=== PATIENT | female | born 1970 | race Two or more races ===

== ENCOUNTER 2018-03-12 09:52 | Emergency (ER) | payer MEDICAID, OTHER ==
[~2018-03-12] VITALS: Ht 154.9 cm; Wt 81.6 kg
[~2018-03-12 09:52] MED LIST: CEPH500C
[2018-03-12 10:26] LABS: Urine Bacteria NONE SEEN /hpf (None Seen); Urine Blood 1+ /uL (Negative); Urine Mucus FEW (None Seen); Urine Specific Gravity 1.026 (1.001-1.035); Urine WBC 2 /hpf (0 - 5)
[2018-03-12 10:46] LABS: Basophils # (auto) 0.1 uL; Eosinophils # (auto) 0.2 uL; Lymphocytes # (auto) 1.8 uL; Monocytes # (auto) 0.6 uL
[2018-03-12 10:47] LABS: Basophils % (auto) 0.9 % (0.0-2.0); Eosinophils % (auto) 2.8 % (0.0-7.0); Hematocrit 39.9 % (36.0-46.0); Hemoglobin 12.8 g/dL (12.2-16.2); Lymphocytes % (auto) 21.4 % (10.0-50.0); Mean Corpuscular Hemoglobin 25.7 pg (28.0-32.0); Mean Corpuscular Volume 80.2 fL (80.0-100.0); Monocytes % (auto) 7.4 % (0.0-12.0); Neutrophils # (auto) 5.5 uL; Neutrophils % (auto) 67.5 % (37.0-80.0); Nucleated Red Blood Cells % 0.1 %; Platelet Count (auto) 474 10^3/uL (140-450); Red Blood Cells 4.97 10^6/uL (4.0-5.20); White Blood Cell 8.2 10^3/uL (4.4-10.8)
[2018-03-12 11:02] LABS: Albumin 3.6 g/dL (3.4-5.0); BUN/Creatinine Ratio 9.9; Bilirubin, Total 0.4 mg/dL (0.2-1.0); Calcium 8.8 mg/dL (8.5-10.1); Total Protein 7.8 g/dL (6.4-8.2)
[2018-03-12 12:00] VITALS: BP 122/77
== END 2018-03-12 12:00 | disposition home or self-care (01) ==
LOC: ER 09:52
DX: R10.32 Left lower quadrant pain (principal); K21.9 Gastro-esophageal reflux disease without esophagitis; E11.9 Type 2 diabetes mellitus without complications; R51 Headache; Z90.49 Acquired absence of other specified parts of digestive tract; Z87.891 Personal history of nicotine dependence
CPT/HCPCS: 36415; 80053; 81001; 85025

== ENCOUNTER 2018-05-23 20:07 | Emergency (ER) | payer OTHER ==
[~2018-05-23] VITALS: Ht 180.3 cm; Wt 81.6 kg
[2018-05-23] MEDS ORDERED: ALBUTEROL SULF 2.5 MG/0.5ML(0.5%) NEB SOLN NEB ONE (20:30)
[2018-05-23] MEDS ORDERED: IPRATROPIUM BROM 0.5 MG/2.5ML INH SOL NEB ONE (20:30)
[2018-05-23 22:00] LABS: Urine Bacteria NONE SEEN /hpf (None Seen); Urine Blood Negative /uL (Negative); Urine Mucus FEW (None Seen); Urine Specific Gravity 1.022 (1.001-1.035); Urine WBC 1 /hpf (0 - 5)
[2018-05-23 23:37] LABS: Hemoglobin 13.1 g/dL (12.2-16.2); Mean Corpuscular Volume 76.9 fL (80.0-100.0); Monocytes # (auto) 0.7 uL; Monocytes % (auto) 5.8 % (0.0-12.0); Nucleated Red Blood Cells % 0.1 %; White Blood Cell 12.3 10^3/uL (4.4-10.8)
[2018-05-23 23:38] LABS: Basophils # (auto) 0.1 uL; Eosinophils # (auto) 0.4 uL; Eosinophils % (auto) 3.4 % (0.0-7.0); Hematocrit 39.9 % (36.0-46.0); Lymphocytes # (auto) 2.9 uL; Lymphocytes % (auto) 23.7 % (10.0-50.0); Mean Corpuscular Hemoglobin 25.2 pg (28.0-32.0); Mean Corpuscular Hgb Conc. 32.8 g/dL (32.0-36.0); Neutrophils # (auto) 8.1 uL; Neutrophils % (auto) 66.1 % (37.0-80.0); Platelet Count (auto) 459 10^3/uL (140-450); Red Blood Cells 5.19 10^6/uL (4.0-5.20); Red Cell Distribution Width 15.7 % (11.8-14.3)
[2018-05-23 23:55] LABS: Alanine Aminotransferase 25 U/L (13-56); Albumin 3.3 g/dL (3.4-5.0); Alkaline Phosphatase 85 U/L (45-117); Anion Gap 10 (5-15); Aspartate Aminotransferase 20 U/L (15-37); BUN/Creatinine Ratio 12.3; Bilirubin, Total 0.3 mg/dL (0.2-1.0); Blood Urea Nitrogen 10 mg/dL (7-18); Calcium 8.6 mg/dL (8.5-10.1); Carbon Dioxide 21 mmol/L (21-32); Chloride 109 mmol/L (98-107); GFR African American 97 mL/min; GFR Non-African American 81 mL/min; Glucose 152 mg/dL (74-106); Potassium 4.1 mmol/L (3.5-5.1); Sodium 140 mmol/L (136-145); Total Protein 7.6 g/dL (6.4-8.2)
[2018-05-24 02:30] VITALS: BP 141/88
== END 2018-05-24 03:15 | disposition left against medical advice (07) ==
LOC: ER 20:14
DX: R06.02 Shortness of breath (principal); Z53.21 Procedure and treatment not carried out due to patient leaving prior to being seen by health care provider
CPT/HCPCS: 36415; 71046; 80053; 81001; 81025; 83880; 84484; 85025; 93005; 94640

== ENCOUNTER 2020-02-11 15:36 | Emergency (ER) | payer OTHER ==
[~2020-02-11] VITALS: Ht 154.9 cm; Wt 81.6 kg
[2020-02-11 15:48] VITALS: BP 133/81
[2020-02-11] MEDS ORDERED: IPRATROPIUM BROM 0.5 MG/2.5ML INH SOL NEB ONE (16:45)
[2020-02-11] MEDS ORDERED: ALBUTEROL SULF 2.5 MG/0.5ML(0.5%) NEB SOLN NEB ONE (16:45)
[2020-02-11] MEDS ORDERED: cefTRIAXone SOD 1,000 MG VL IM ONE (17:00)
== END 2020-02-11 17:34 | disposition home or self-care (01) ==
LOC: ER 15:37
DX: J20.9 Acute bronchitis, unspecified (principal); H66.91 Otitis media, unspecified, right ear; E11.9 Type 2 diabetes mellitus without complications; K21.9 Gastro-esophageal reflux disease without esophagitis
CPT/HCPCS: 71046; 94640; 96372; 99283; J0696; J7644

== ENCOUNTER 2020-06-08 09:30 | Emergency (ER) | payer OTHER ==
[~2020-06-08] VITALS: Ht 154.9 cm; Wt 81.6 kg
[2020-06-08] MEDS ORDERED: ACETAMINOPHEN 500 MG TAB PO ONE (10:15)
[2020-06-08 10:47] VITALS: BP 113/85
== END 2020-06-08 14:12 | disposition home or self-care (01) ==
LOC: ER 09:30
DX: J02.0 Streptococcal pharyngitis (principal); F41.9 Anxiety disorder, unspecified; K21.9 Gastro-esophageal reflux disease without esophagitis; E11.9 Type 2 diabetes mellitus without complications; Z90.49 Acquired absence of other specified parts of digestive tract; Z87.891 Personal history of nicotine dependence
CPT/HCPCS: 71045; 87804; 87880

== ENCOUNTER 2020-06-13 20:00 | Emergency (ER) | payer OTHER ==
[~2020-06-13] VITALS: Ht 154.9 cm; Wt 81.6 kg
[2020-06-13] MEDS ORDERED: hydrOXYchloroQUINE SULFATE 200 MG TAB PO ONE (20:30)
[2020-06-13] MEDS ORDERED: ACETAMINOPHEN 325 MG TAB PO ONE (20:39)
[2020-06-13 20:58] VITALS: BP 134/70
== END 2020-06-13 21:02 | disposition home or self-care (01) ==
LOC: ER 20:04
DX: R05 Cough (principal); R09.81 Nasal congestion; R53.1 Weakness; E11.9 Type 2 diabetes mellitus without complications; K21.9 Gastro-esophageal reflux disease without esophagitis; Z20.828 Contact with and (suspected) exposure to other viral communicable diseases; Z90.49 Acquired absence of other specified parts of digestive tract; Z87.891 Personal history of nicotine dependence
CPT/HCPCS: 71045

== ENCOUNTER 2020-06-17 09:51 | Inpatient (IN) | payer OTHER ==
[~2020-06-17] VITALS: Ht 154.9 cm; Wt 88.2 kg
[2020-06-17] MEDS ORDERED: ACETAMINOPHEN 500 MG TAB PO ONE ×2 (10:00→10:01)
[2020-06-17] MEDS ORDERED: SODIUM CHLORIDE 0.9% 1,000 ML IV ONE (11:07)
[2020-06-17] MEDS ORDERED: ASCORBIC ACID 500 MG TAB PO ONE (11:15)
[2020-06-17] MEDS ORDERED: cefTRIAXone 1GM/50ML D5W 50 ML IV ONE (11:15)
[2020-06-17] MEDS ORDERED: DexAMETHasone SOD PHOS 4 MG/1ML SDV INJ IV ONE (11:15)
[2020-06-17] MEDS ORDERED: ZINC SULFATE 220mg CAP or TAB PO ONE (11:15)
[2020-06-17] MEDS ORDERED: AZITHROMYCIN 500MG/ 250ML 250 ML IV ONE (11:15)
[2020-06-17 12:39] LABS: Basophils # (auto) 0 10 ^3/uL (0-0.2); Eosinophils # (auto) 0 10 ^3/uL (0-0.8); Eosinophils % (auto) 0.1 % (0.0-7.0); Hematocrit 40.3 % (36.0-46.0); Mean Corpuscular Hemoglobin 23.5 pg (28.0-32.0)
[2020-06-17 12:40] LABS: Basophils % (auto) 0.3 % (0.0-2.0); Hemoglobin 12.7 g/dL (12.2-16.2); Lymphocytes # (auto) 1.4 10 ^3/uL (0.4-5.4); Lymphocytes % (auto) 12.8 % (10.0-50.0); Mean Corpuscular Hgb Conc. 31.5 g/dL (32.0-36.0); Mean Corpuscular Volume 74.7 fL (80.0-100.0); Monocytes # (auto) 1.2 10 ^3/uL (0-1.3); Monocytes % (auto) 10.9 % (0.0-12.0); Neutrophils # (auto) 8.3 10 ^3/uL (1.6-8.6); Neutrophils % (auto) 75.9 % (37.0-80.0); Platelet Count (auto) 361 10^3/uL (140-450); Red Cell Distribution Width 17.8 % (11.8-14.3)
[2020-06-17 12:54] LABS: INR 1.02 (0.9-1.15); Partial Thromboplastin Time 25.7 sec (23.64-32.05)
[2020-06-17 12:57] LABS: BUN/Creatinine Ratio 12.1; Calcium 8.5 mg/dL (8.5-10.1); Magnesium 2.3 mg/dL (1.6-2.6); Potassium 3.7 mmol/L (3.5-5.1)
[2020-06-17 13:00] LABS: Bilirubin, Total 0.4 mg/dL (0.2-1.0); Total Protein 7.6 g/dL (6.4-8.2)
[2020-06-17] MEDS ORDERED: MORPHINE SULF INJ 2 MG/ML SYRINGE 1ML IV PRN (13:15)
[2020-06-17] MEDS ORDERED: NITROGLYCERIN 0.4 MG SL TAB SL PRN (13:15)
[2020-06-17] MEDS ORDERED: SODIUM CHLORIDE 0.9% 1,000 ML IV SCH (13:53)
[2020-06-17] MEDS: ALBUTEROL SULF HFA 90MCG INH 200DOSE IN SCH ×2 (14:00→21:00)
[2020-06-17] MEDS ORDERED: TEMAZEPAM 15 MG CAP PO PRN (14:00)
[2020-06-17] MEDS ORDERED: DEXTROSE (50%) 50ML SYRG IV PRN (14:00)
[2020-06-17] MEDS ORDERED: ACETAMINOPHEN 500 MG TAB PO PRN (14:00)
[2020-06-17] MEDS: CLINDAMYCIN 600MG IV 50 ML IV SCH ×2 (14:00→22:20)
[2020-06-17] MEDS: ACCU-CHEK COMFORT CURVE STRIP VI SCH ×2 (17:00→22:21)
[2020-06-17] MEDS: InsuLIN REG 1unit/0.01ml Soln (100units/ml) SC SCH ×2 (17:00→22:22)
[2020-06-17 18:37] VITALS: BP 134/79
[2020-06-17] MEDS: BUDESONIDE (INHALATION) 180 MCG IH IN SCH (21:00)
--- NOTE | 2020-06-17 21:00 | NUR ---
tele admit from ed pt is covid positive, arrived via wheelchair awake and alert. pt on 2L nc no distress noted or expressed. pt oriented to this nurse, bed controls, use of call light and restroom. pt updated on plan of care. pt stated she had been feeling symptoms for past "week, plus". pt also reports multiple members of her household have tested positive for covid. pt bed locked, low and 2x rails up. call light in reach, this nurse encouraged pt to call as needed. this nurse to round q1hr and prn. pt is tele 2 showing nsr 72bpm.
[2020-06-17 22:00] VITALS: BP 116/70
[2020-06-17] MEDS: GABAPENTIN 300 MG CAP PO SCH (22:20)
[2020-06-17] MEDS: ENOXAPARIN SOD 40 MG/0.4 ML SYRINGE SC SCH (22:21)
[2020-06-17] MEDS: QUEtiapine FUMARATE 25 MG TAB PO SCH (22:21)
[2020-06-17 22:27] LABS: Urine Bacteria NONE SEEN /hpf (None Seen); Urine Blood Negative /uL (Negative); Urine Mucus FEW (None Seen); Urine Specific Gravity 1.023 (1.001-1.035); Urine WBC 4 /hpf (0 - 5)
[2020-06-17] MEDS: traMADol HCL 50 MG TAB PO PRN (22:53)
--- NOTE | 2020-06-17 23:35 | NUR ---
Respiratory note: PT SEEN AND ASSESSED, NO DISTRESS NOTED AT THIS TIME. MEDICATION NON ADMIN AT THIS TIME. PHARMACY NOT HERE TO RETRIEVE MEDICATION. WILL NOTIFY DAY SHIFT RT.
[2020-06-18] MEDS: PROMETHAZINE HCL 25 MG/ML 1ML IV PRN ×4 (03:38→22:28)
[2020-06-18 05:00] VITALS: BP 99/62
[2020-06-18 05:40] LABS: Basophils # (auto) 0 10 ^3/uL (0-0.2); Eosinophils # (auto) 0 10 ^3/uL (0-0.8); Monocytes # (auto) 0.8 10 ^3/uL (0-1.3)
[2020-06-18 05:42] LABS: Basophils % (auto) 0.4 % (0.0-2.0); Eosinophils % (auto) 0.2 % (0.0-7.0); Hemoglobin 11.7 g/dL (12.2-16.2); Lymphocytes # (auto) 1.1 10 ^3/uL (0.4-5.4); Lymphocytes % (auto) 16.4 % (10.0-50.0); Mean Corpuscular Hemoglobin 23.5 pg (28.0-32.0); Mean Corpuscular Hgb Conc. 31.8 g/dL (32.0-36.0); Mean Corpuscular Volume 74.1 fL (80.0-100.0); Monocytes % (auto) 11.4 % (0.0-12.0); Neutrophils % (auto) 71.6 % (37.0-80.0); Platelet Count (auto) 365 10^3/uL (140-450); Red Blood Cells 4.99 10^6/uL (4.0-5.20); Red Cell Distribution Width 17.8 % (11.8-14.3)
[2020-06-18 05:53] LABS: Potassium 3.7 mmol/L (3.5-5.1)
[2020-06-18 06:00] LABS: Albumin 2.9 g/dL (3.4-5.0); BUN/Creatinine Ratio 16.9; Bilirubin, Total 0.4 mg/dL (0.2-1.0); Calcium 8.1 mg/dL (8.5-10.1)
[2020-06-18] MEDS: ALBUTEROL SULF HFA 90MCG INH 200DOSE IN SCH ×3 (06:43→23:45)
[2020-06-18] MEDS: BUDESONIDE (INHALATION) 180 MCG IH IN SCH ×2 (06:43→22:00)
--- NOTE | 2020-06-18 06:43 | NUR ---
Respiratory note: MDI NOT AVAILABLE, WILL ORDER FROM PHARMACY. PT IN NO RESPIRATORY DISTRESS.
[2020-06-18] MEDS: GABAPENTIN 300 MG CAP PO SCH ×3 (06:48→22:27)
[2020-06-18] MEDS: ACCU-CHEK COMFORT CURVE STRIP VI SCH ×4 (06:48→22:28)
[2020-06-18] MEDS: InsuLIN REG 1unit/0.01ml Soln (100units/ml) SC SCH ×4 (06:49→22:26)
[2020-06-18] MEDS: CLINDAMYCIN 600MG IV 50 ML IV SCH ×3 (06:49→22:27)
[2020-06-18 08:44] VITALS: BP 106/64
[2020-06-18] MEDS ORDERED: DexAMETHasone SOD PHOS 4 MG/1ML SDV INJ IV SCH (10:00)
[2020-06-18] MEDS: DexAMETHasone SOD PHOS 10MG/1ML VIAL INJ IV SCH (10:21)
[2020-06-18] MEDS: ASCORBIC ACID 1,000 MG TAB PO SCH (10:22)
[2020-06-18] MEDS: ZINC SULFATE 220mg CAP or TAB PO SCH (10:22)
[2020-06-18] MEDS: CHOLECALCIFEROL (VITD3) 1,000UNIT=25mCg TAB PO SCH (10:22)
[2020-06-18] MEDS: levoFLOXacin 500MG 100 ML IV SCH (10:22)
[2020-06-18] MEDS: CITALOPRAM HYDROBR 20 MG TAB PO SCH (10:22)
[2020-06-18] MEDS: ENOXAPARIN SOD 40 MG/0.4 ML SYRINGE SC SCH ×2 (10:23→22:28)
[2020-06-18] MEDS: traMADol HCL 50 MG TAB PO PRN ×2 (10:35→22:29)
[2020-06-18 12:21] VITALS: BP 109/71
[2020-06-18 17:19] VITALS: BP 103/64
[2020-06-18] MEDS: clonazePAM 0.5 MG TAB PO PRN (17:56)
--- NOTE | 2020-06-18 19:20 | NUR ---
Opening note pt A&Ox4. respirations even and nonlabored on 2Lnc. pt ambulates to bathroom without assistance, however has c/o SOB w/exertion. pt is a nonproductive cough. POC discussed with pt, verbalized understanding. bed in low locked position, call light within reach.
[2020-06-18 22:00] VITALS: BP 114/71
[2020-06-18] MEDS: QUEtiapine FUMARATE 25 MG TAB PO SCH (22:27)
[2020-06-19] MEDS: MORPHINE SULF INJ 2 MG/ML SYRINGE 1ML IV PRN ×4 (02:44→20:00)
[2020-06-19 05:00] VITALS: BP 106/71
[2020-06-19] MEDS: ACCU-CHEK COMFORT CURVE STRIP VI SCH ×4 (06:32→22:30)
[2020-06-19] MEDS: InsuLIN REG 1unit/0.01ml Soln (100units/ml) SC SCH ×4 (06:35→22:31)
[2020-06-19] MEDS: GABAPENTIN 300 MG CAP PO SCH ×3 (06:58→22:29)
[2020-06-19] MEDS: CLINDAMYCIN 600MG IV 50 ML IV SCH (06:58)
[2020-06-19] MEDS: BUDESONIDE (INHALATION) 180 MCG IH IN SCH ×2 (07:05→22:10)
--- NOTE | 2020-06-19 07:28 | NUR ---
closing note pt resting in semi fowlers with HOB at 30 degrees. respirations even and nonlabored on 2Lnc. bed in low locked position, call light within reach.
--- NOTE | 2020-06-19 07:30 | NUR ---
Opening Shift Note Assumed care of patient, awake and alert. No S/S of distress/SOB or pain. Instructed on POC and to call for assist PRN, will continue to monitor for changes Q1hr and PRN. Fall precautions in place per safety protocol.
[2020-06-19] MEDS: ALBUTEROL SULF HFA 90MCG INH 200DOSE IN SCH ×3 (08:33→22:10)
[2020-06-19] MEDS: PROMETHAZINE HCL 25 MG/ML 1ML IV PRN ×3 (08:40→19:59)
--- NOTE | 2020-06-19 08:50 | NUR ---
PAIN Patient requesting pain medication for pain of 10/10. Administered available morphine at this time, will cont to monitor patient.
[2020-06-19 09:00] VITALS: BP 108/75
[2020-06-19] MEDS: levoFLOXacin 500MG 100 ML IV SCH (10:16)
[2020-06-19] MEDS: DexAMETHasone SOD PHOS 10MG/1ML VIAL INJ IV SCH (10:16)
[2020-06-19] MEDS: CITALOPRAM HYDROBR 20 MG TAB PO SCH (10:16)
[2020-06-19] MEDS: ZINC SULFATE 220mg CAP or TAB PO SCH (10:16)
[2020-06-19] MEDS: clonazePAM 0.5 MG TAB PO PRN (10:17)
[2020-06-19] MEDS: ASCORBIC ACID 1,000 MG TAB PO SCH (10:17)
[2020-06-19] MEDS: CHOLECALCIFEROL (VITD3) 1,000UNIT=25mCg TAB PO SCH (10:58)
[2020-06-19] MEDS ORDERED: DOXYCYCLINE 100 MG TAB/CAP PO ONE (11:15)
[2020-06-19] MEDS ORDERED: POTASSIUM CHL 10 Meq TABLET PO ONE (11:15)
[2020-06-19] MEDS ORDERED: FUROSEMIDE 40 MG TAB PO ONE (11:15)
[2020-06-19] MEDS: ENOXAPARIN SOD 80 MG/0.8ML SYRINGE SC SCH ×2 (11:34→22:30)
--- NOTE | 2020-06-19 11:57 | NUR ---
I called [facility] and spoke with Kimberlee [phone]-she stated we can use [facility] for home oxygen. I faxed home oxygen order to [facility]-requesting that they send authorization to [facility].
[2020-06-19 13:00] VITALS: BP 121/74
[2020-06-19] MEDS ORDERED: guaiFENesin-CODEINE Liq 5 ML UD PO ONE (13:00)
--- NOTE | 2020-06-19 13:00 | NUR ---
Hospitalist MD Dominguez at bedside, aware of patient status. New orders for social insurance analyst to arrange for home O2 received. Per MD Dominguez, she will input D/C orders in today however, patient is to be discharged tomorrow in the AM. Will carry out new orders and cont to monitor patient.
--- NOTE | 2020-06-19 15:36 | NUR ---
I called [facility] [phone] and spoke with Teresa, she said they did receive the order and are working on it-they will send authorization to [facility] today.
--- NOTE | 2020-06-19 15:49 | NUR ---
Assessment Patient is a 49- year-old female who is alert and oriented. Prior to admission patient lived home with family and function independently. Per patient she can care for her own ADLs. Per patient she does not have any medical equipment now. Per patient she will return to her prior living arrangements post discharge and family will transport her home. Patient PCP Dr. Reynolds. Advise patient there is a social service consult for home oxygen. Informed patient clinical information will be faxed to [facility]. Advised patient to follow up with her primary doctor. Informed patient she has the right to participate in all discharge planning. Patient verbalized understanding and agreed to discharge plan. Faxed clinical information to [facility] requesting to deliver portable oxygen to [facility]. STEPHANIE Triplett will obtain authorization from [facility]. Placed call to [facility], spoke to Daina . Per Daina order has been received but authorization is pending. Informed STEPHANIE Triplett who will be following up with [facility]. Addendum: 06/19/20 at 1551 by THEODORE SOSA Amended: Links added.
--- NOTE | 2020-06-19 16:40 | NUR ---
O2 ON RA Patient placed on RA to assess O2, patient 02 on RA was 91%. Will cont to monitor.
[2020-06-19 17:00] VITALS: BP 99/68
[2020-06-19] MEDS ORDERED: guaiFENesin-CODEINE Liq 5 ML UD PO PRN (18:00)
--- NOTE | 2020-06-19 19:25 | NUR ---
opening note pt A&Ox4. respirations even and nonlabored on 2Lnc. will attempt to titrate O2 down to room air. POC discussed, pt verbalized understanding. bed in low locked position, call light within reach.
[2020-06-19 21:54] VITALS: BP 126/67
[2020-06-19] MEDS ORDERED: DexAMETHasone 4 MG TAB PO SCH (22:00)
[2020-06-19] MEDS: DOXYCYCLINE 100 MG TAB/CAP PO SCH (22:29)
[2020-06-19] MEDS: QUEtiapine FUMARATE 25 MG TAB PO SCH (22:29)
[2020-06-20] MEDS: MORPHINE SULF INJ 2 MG/ML SYRINGE 1ML IV PRN (00:58)
[2020-06-20] MEDS: PROMETHAZINE HCL 25 MG/ML 1ML IV PRN ×4 (00:58→22:43)
--- NOTE | 2020-06-20 02:35 | NUR ---
rounds Pt resting comfortably in semi fowlers position with HOB at 30 degrees. respirations are even and nonlabored on room air. respirations are 16/min. O2 saturation is 92%. will continue to monitor.
[2020-06-20 04:54] VITALS: BP 114/69
[2020-06-20] MEDS: ACCU-CHEK COMFORT CURVE STRIP VI SCH ×4 (06:55→22:45)
[2020-06-20] MEDS: GABAPENTIN 300 MG CAP PO SCH ×3 (06:55→22:43)
[2020-06-20] MEDS: InsuLIN REG 1unit/0.01ml Soln (100units/ml) SC SCH ×4 (06:56→22:46)
--- NOTE | 2020-06-20 07:21 | NUR ---
closing note pt resting in semi fowlers with HOB elevated at 30 degrees. respirations even and nonlabored on room air. bed in low locked position, call light within reach.
--- NOTE | 2020-06-20 08:35 | NUR ---
OPENING SHIFT NOTE Assumed care of patient. PT is awake and alert. No S/S of distress/SOB or pain. Instructed on POC and to call for assist PRN. Fall precautions in place per safety protocol. Will continue to monitor for changes Q1hr and PRN.
[2020-06-20 09:00] VITALS: BP 113/73
[2020-06-20] MEDS: ALBUTEROL SULF HFA 90MCG INH 200DOSE IN SCH ×2 (09:55→16:10)
[2020-06-20] MEDS: BUDESONIDE (INHALATION) 180 MCG IH IN SCH (09:56)
[2020-06-20] MEDS ORDERED: LACTULOSE 20Gm/30ML SOLN PO PRN (10:15)
[2020-06-20] MEDS: FUROSEMIDE 40 MG/4 ML VIAL IV SCH (10:45)
[2020-06-20] MEDS: ENOXAPARIN SOD 80 MG/0.8ML SYRINGE SC SCH ×2 (10:45→22:44)
[2020-06-20] MEDS: DexAMETHasone SOD PHOS 10MG/1ML VIAL INJ IV SCH (10:45)
[2020-06-20] MEDS: CITALOPRAM HYDROBR 20 MG TAB PO SCH (10:46)
[2020-06-20] MEDS: ASCORBIC ACID 1,000 MG TAB PO SCH (10:46)
[2020-06-20] MEDS: DOXYCYCLINE 100 MG TAB/CAP PO SCH (10:46)
[2020-06-20] MEDS: ZINC SULFATE 220mg CAP or TAB PO SCH (10:46)
[2020-06-20] MEDS: traMADol HCL 50 MG TAB PO PRN (10:47)
[2020-06-20] MEDS: CHOLECALCIFEROL (VITD3) 1,000UNIT=25mCg TAB PO SCH (10:48)
[2020-06-20 11:02] LABS: Basophils # (auto) 0 10 ^3/uL (0-0.2); Basophils % (auto) 0.1 % (0.0-2.0); Eosinophils # (auto) 0 10 ^3/uL (0-0.8); Eosinophils % (auto) 0.1 % (0.0-7.0); Hematocrit 38.8 % (36.0-46.0); Hemoglobin 12.3 g/dL (12.2-16.2); Lymphocytes # (auto) 1.1 10 ^3/uL (0.4-5.4); Monocytes # (auto) 0.7 10 ^3/uL (0-1.3); Monocytes % (auto) 7.7 % (0.0-12.0); Neutrophils # (auto) 6.8 10 ^3/uL (1.6-8.6); Nucleated Red Blood Cells % 0.1 %
[2020-06-20 11:03] LABS: Lymphocytes % (auto) 12.3 % (10.0-50.0); Mean Corpuscular Hemoglobin 23.5 pg (28.0-32.0); Mean Corpuscular Hgb Conc. 31.6 g/dL (32.0-36.0); Mean Corpuscular Volume 74.5 fL (80.0-100.0); Neutrophils % (auto) 79.8 % (37.0-80.0); Platelet Count (auto) 413 10^3/uL (140-450); Red Blood Cells 5.21 10^6/uL (4.0-5.20); Red Cell Distribution Width 17.7 % (11.8-14.3); White Blood Cell 8.6 10^3/uL (4.4-10.8)
[2020-06-20 11:21] LABS: Calcium 9.2 mg/dL (8.5-10.1); Potassium 3.8 mmol/L (3.5-5.1)
[2020-06-20 11:23] LABS: BUN/Creatinine Ratio 12.9; CRP High Sensitivity 0.33 mg/dL (< 0.3)
[2020-06-20] MEDS ORDERED: PANTOPRAZOLE 40 MG TAB PO ONE (11:30)
[2020-06-20] MEDS: clonazePAM 0.5 MG TAB PO PRN (12:03)
--- NOTE | 2020-06-20 12:46 | NUR ---
Nutrition Assessment Notes please see attached link for complete assessment Est Energy needs ABW 68 [id number] (20-23 kcal/kgABW), Est Protein needs: 68-74gms/day (1.0-1.1 gm/kgABW). Will continue to monitor and reassess prn. Addendum: 06/20/20 at [address] Amended: Links added.
[2020-06-20 13:00] VITALS: BP 123/85
--- NOTE | 2020-06-20 13:16 | NUR ---
I called Teresa at [facility] [phone] and left message asking for an update on status of home oxygen order-needing authorization.
--- NOTE | 2020-06-20 13:37 | NUR ---
I spoke with Crystal at [facility] [phone] regarding home oxygen order. At first Crystal told me they would not authorize home oxygen unless room air saturation is less than 89%, she then spoke with her esthetician and manager [facility] who said they will authorize the home oxygen for 30 days and then re-assess. I relayed this information to Dr. Dominguez. Addendum: 06/20/20 at 1343 by Ioana George RN Per Crystal they will send the authorization to [facility].
[2020-06-20 17:00] VITALS: BP 127/70
[2020-06-20] MEDS: HYDROcodone-ACET 5/325MG TAB PO PRN ×2 (17:46→23:55)
--- NOTE | 2020-06-20 19:15 | NUR ---
opening note pt A&Ox4. respirations even and nonlabored on room air. pt reports sweating. pt reports constipation. POC discussed, pt verbalized understanding. bed in low locked position. call light within reach.
[2020-06-20 19:51] VITALS: BP 127/70
[2020-06-20] MEDS ORDERED: BISACODYL 5 MG EC TAB PO ONE (20:00)
--- NOTE | 2020-06-20 20:30 | NUR ---
Portable fan provided Nurse aid Xochi provide patient with fan due to complaints of sweating. pt is relieved. will continue to monitor.
[2020-06-20 22:00] VITALS: BP 112/69
[2020-06-20] MEDS: QUEtiapine FUMARATE 25 MG TAB PO SCH (22:44)
[2020-06-21] MEDS: ALBUTEROL SULF HFA 90MCG INH 200DOSE IN SCH ×3 (00:10→14:54)
[2020-06-21] MEDS: BUDESONIDE (INHALATION) 180 MCG IH IN SCH ×2 (00:11→08:59)
[2020-06-21] MEDS: PROMETHAZINE HCL 25 MG/ML 1ML IV PRN ×3 (02:45→13:06)
[2020-06-21] MEDS: MORPHINE SULF INJ 2 MG/ML SYRINGE 1ML IV PRN ×2 (03:52→13:06)
[2020-06-21 05:00] VITALS: BP 118/76
[2020-06-21] MEDS: ACCU-CHEK COMFORT CURVE STRIP VI SCH ×3 (06:50→18:05)
[2020-06-21] MEDS: GABAPENTIN 300 MG CAP PO SCH ×2 (06:50→15:57)
[2020-06-21] MEDS: InsuLIN REG 1unit/0.01ml Soln (100units/ml) SC SCH ×3 (06:51→17:00)
[2020-06-21 06:58] LABS: Basophils # (auto) 0 10 ^3/uL (0-0.2); Eosinophils # (auto) 0 10 ^3/uL (0-0.8); Hematocrit 38.5 % (36.0-46.0); Hemoglobin 12.3 g/dL (12.2-16.2); White Blood Cell 12.2 10^3/uL (4.4-10.8)
[2020-06-21 07:00] LABS: Basophils % (auto) 0.3 % (0.0-2.0); Eosinophils % (auto) 0.1 % (0.0-7.0); Lymphocytes # (auto) 1.6 10 ^3/uL (0.4-5.4); Lymphocytes % (auto) 12.8 % (10.0-50.0); Mean Corpuscular Hemoglobin 23.7 pg (28.0-32.0); Mean Corpuscular Hgb Conc. 31.9 g/dL (32.0-36.0); Mean Corpuscular Volume 74.3 fL (80.0-100.0); Neutrophils # (auto) 9.6 10 ^3/uL (1.6-8.6); Neutrophils % (auto) 78.8 % (37.0-80.0); Nucleated Red Blood Cells % 0.1 %; Platelet Count (auto) 409 10^3/uL (140-450); Red Blood Cells 5.17 10^6/uL (4.0-5.20); Red Cell Distribution Width 17.7 % (11.8-14.3)
[2020-06-21 07:26] LABS: Calcium 9.1 mg/dL (8.5-10.1); Potassium 3.8 mmol/L (3.5-5.1)
[2020-06-21 07:29] LABS: BUN/Creatinine Ratio 17.7
[2020-06-21 07:32] LABS: Bilirubin, Total 0.4 mg/dL (0.2-1.0); Total Protein 7.5 g/dL (6.4-8.2)
--- NOTE | 2020-06-21 07:35 | NUR ---
Opening Shift Note Assumed care of patient, awake and alert. No S/S of distress/SOB, reports body pain. Instructed on POC and to call for assist PRN, will continue to monitor for changes Q1hr and PRN.
--- NOTE | 2020-06-21 07:47 | NUR ---
closing note Pt resting in semi fowlers position with HOB at 30 degrees. respirations even and nonlabored on room air. bed in low locked position with call light within reach. endorsed care to day shift RN.
[2020-06-21] MEDS: HYDROcodone-ACET 5/325MG TAB PO PRN (08:55)
[2020-06-21 09:00] VITALS: BP 124/79
[2020-06-21] MEDS ORDERED: PANTOPRAZOLE 40 MG TAB PO SCH (10:00)
[2020-06-21] MEDS: ENOXAPARIN SOD 80 MG/0.8ML SYRINGE SC SCH (10:00)
[2020-06-21] MEDS: FUROSEMIDE 40 MG/4 ML VIAL IV SCH (10:38)
[2020-06-21] MEDS: DexAMETHasone SOD PHOS 10MG/1ML VIAL INJ IV SCH (10:38)
[2020-06-21] MEDS: ZINC SULFATE 220mg CAP or TAB PO SCH (10:38)
[2020-06-21] MEDS: CITALOPRAM HYDROBR 20 MG TAB PO SCH (10:39)
[2020-06-21] MEDS: ASCORBIC ACID 1,000 MG TAB PO SCH (10:39)
[2020-06-21] MEDS: CHOLECALCIFEROL (VITD3) 1,000UNIT=25mCg TAB PO SCH (10:40)
[2020-06-21] MEDS: clonazePAM 0.5 MG TAB PO PRN (10:41)
[2020-06-21] MEDS ORDERED: METH4PAK PO (11:42)
[2020-06-21] MEDS ORDERED: POTA1TAB61 PO (11:42)
[2020-06-21] MEDS ORDERED: ASPI81CH43 PO (11:42)
[2020-06-21] MEDS ORDERED: CHOL1000 PO (11:42)
[2020-06-21] MEDS ORDERED: FURO20TA3 PO (11:42)
[2020-06-21] MEDS ORDERED: LEVO750T64 PO (11:42)
[2020-06-21] MEDS ORDERED: ALBUAER3 IN (11:42)
[2020-06-21] MEDS ORDERED: PANT40T PO (11:42)
[2020-06-21] MEDS ORDERED: ZINC100T5 PO (11:42)
[2020-06-21] MEDS ORDERED: BISA1TAB6 PO (11:44)
[2020-06-21] MEDS ORDERED: DEXT1SYP9 PO (11:44)
[2020-06-21 13:00] VITALS: BP 106/73
[2020-06-21 13:47] VITALS: BP 124/79
--- NOTE | 2020-06-21 15:25 | NUR ---
I faxed hard copy authorization (from [facility]) to [facility] (fax [phone]) for home oxygen.
--- NOTE | 2020-06-21 16:26 | NUR ---
D/C automobile mechanic radiator Velvet advised me patient never received oxygen yesterday. Placed follow up called to León with [facility] advising me patient portable will be deliver to front lobby between 16:30-18:30. Informed VALDEMAR Warren.
--- NOTE | 2020-06-21 19:55 | NUR ---
Opening Shift Note Assumed care of patient, awake and alert, oriented x 4, follows direction. Patient on room air walking in room with no s/s of respiratory distress, or SOB. Instructed on POC for discharge, patient verbalized understanding. Oxygen was delivered to bed side, instructed patient on how to use oxygen, patient verbalized understanding.
--- NOTE | 2020-06-21 20:05 | NUR ---
Discharge instructions given as ordered. Encourage to follow up with PMD as instructed. All questions and concerns addressed. Patient verbalized understanding. Medication reconciliation form completed and copy given to patient. IV removed with catheter intact, pressure dressing applied. Telemetry unit returned to ICU. Patient taken to vehicle via wheelchair with all personal belongings, accompanied by staff and family member. No distress noted at time of departure. Addendum: 06/21/20 at 2033 by Elena Bergeron RN RN patient was on portable oxygen 2l via [place]
[2020-06-22] MEDS ORDERED: levoFLOXacin 250 MG TAB PO SCH (10:00)
== END 2020-06-21 20:05 | disposition home or self-care (01) | DRG 720 ==
LOC: ER 09:51 → TELE 09:52 → TELE-EAST 20:25
PROVIDERS: ADMIT Internal Medicine; ATTEND Internal Medicine
DX: A41.89 Other specified sepsis (principal); U07.1 COVID-19; J12.89 Other viral pneumonia; E44.0 Moderate protein-calorie malnutrition; K21.0 Gastro-esophageal reflux disease with esophagitis; K44.9 Diaphragmatic hernia without obstruction or gangrene; N39.0 Urinary tract infection, site not specified; E11.40 Type 2 diabetes mellitus with diabetic neuropathy, unspecified; E66.01 Morbid (severe) obesity due to excess calories; E78.5 Hyperlipidemia, unspecified; J96.01 Acute respiratory failure with hypoxia; K21.9 Gastro-esophageal reflux disease without esophagitis; K59.00 Constipation, unspecified; Z79.899 Other long term (current) drug therapy; Z68.36 Body mass index [BMI] 36.0-36.9, adult
CPT/HCPCS: 36415; 71045; 80048; 80053; 81001; 82728; 82962; 83036; 83615; 83735; 84443; 85025; 85610; 85730; 86141; 93005; 94640; 96365; 96368; 96375; G0378; J0696; J1100; J1815; J1956; J3490

== ENCOUNTER 2020-10-25 18:57 | Emergency (ER) | payer OTHER ==
[~2020-10-25] VITALS: Ht 154.9 cm; Wt 86.2 kg
[~2020-10-25 18:57] MED LIST changes: +ALBUAER3 IN; +ASPI81CH43 PO; +BISA1TAB6 PO; +CHOL1000 PO; +DEXT1SYP9 PO; +FURO20TA3 PO; +LEVO750T64 PO; +METH4PAK PO; +PANT40T PO; +POTA1TAB61 PO; +ZINC100T5 PO
[2020-10-25 20:21] LABS: Urine Bacteria FEW /hpf (None Seen); Urine Blood Negative /uL (Negative); Urine Specific Gravity 1.041 (1.001-1.035); Urine WBC 2 /hpf (0 - 5)
[2020-10-25 20:22] LABS: Basophils # (auto) 0.1 10 ^3/uL (0-0.2); Basophils % (auto) 1.5 % (0.0-2.0); Eosinophils # (auto) 0.3 10 ^3/uL (0-0.8); Eosinophils % (auto) 3.6 % (0.0-7.0); Hemoglobin 12.1 g/dL (12.2-16.2); Lymphocytes # (auto) 2.4 10 ^3/uL (0.4-5.4); Lymphocytes % (auto) 28.9 % (10.0-50.0); Mean Corpuscular Hemoglobin 23.2 pg (28.0-32.0); Mean Corpuscular Hgb Conc. 31.8 g/dL (32.0-36.0); Mean Corpuscular Volume 72.9 fL (80.0-100.0); Monocytes # (auto) 0.6 10 ^3/uL (0-1.3); Monocytes % (auto) 7.8 % (0.0-12.0); Neutrophils # (auto) 4.8 10 ^3/uL (1.6-8.6); Neutrophils % (auto) 58.2 % (37.0-80.0); Nucleated Red Blood Cells % 0.2 %; Platelet Count (auto) 413 10^3/uL (140-450); Red Blood Cells 5.21 10^6/uL (4.0-5.20); Red Cell Distribution Width 16.2 % (11.8-14.3); White Blood Cell 8.3 10^3/uL (4.4-10.8)
[2020-10-25 20:32] LABS: Albumin 3.4 g/dL (3.4-5.0); Anion Gap 6 (5-15); BUN/Creatinine Ratio 6.6; Blood Urea Nitrogen 7 mg/dL (7-18); Carbon Dioxide 26 mmol/L (21-32); Chloride 102 mmol/L (98-107); GFR African American 71 mL/min; GFR Non-African American 59 mL/min; Glucose 277 mg/dL (74-106); Magnesium 1.9 mg/dL (1.6-2.6); Sodium 134 mmol/L (136-145)
[2020-10-25 20:36] LABS: INR 0.94 (0.9-1.15); Partial Thromboplastin Time 24.1 sec (23.0-31.2)
[2020-10-25 20:40] LABS: Alkaline Phosphatase 97 U/L (45-117); Bilirubin, Total 0.4 mg/dL (0.2-1.0); Total Protein 7.9 g/dL (6.4-8.2)
[2020-10-25 21:00] LABS: Alanine Aminotransferase 50 U/L (13-56); Aspartate Aminotransferase 44 U/L (15-37)
[2020-10-26] MEDS ORDERED: LORazepam 0.5 MG TAB PO ONE (01:45)
[2020-10-26 02:00] VITALS: BP 156/88
== END 2020-10-26 03:54 | disposition home or self-care (01) ==
LOC: ER 18:57
DX: R07.89 Other chest pain (principal); E11.9 Type 2 diabetes mellitus without complications; K40.90 Unilateral inguinal hernia, without obstruction or gangrene, not specified as recurrent; K21.9 Gastro-esophageal reflux disease without esophagitis; Z90.49 Acquired absence of other specified parts of digestive tract; Z79.82 Long term (current) use of aspirin; Z79.899 Other long term (current) drug therapy
CPT/HCPCS: 36415; 71250; 74176; 80053; 81001; 82962; 83735; 83880; 84443; 84484; 85025; 85610; 85730; 93005

== ENCOUNTER 2020-12-07 17:10 | Emergency (ER) | payer OTHER ==
[~2020-12-07] VITALS: Ht 154.9 cm; Wt 83.9 kg
[2020-12-07 20:26] VITALS: BP 163/86
[2020-12-07] MEDS ORDERED: KETOROLAC TROMETH 60MG/2ML VIAL IM ONE (20:45)
== END 2020-12-07 21:59 | disposition home or self-care (01) ==
LOC: ER 17:10
DX: S39.012A Strain of muscle, fascia and tendon of lower back, initial encounter (principal); E66.9 Obesity, unspecified; E11.9 Type 2 diabetes mellitus without complications; K21.9 Gastro-esophageal reflux disease without esophagitis; Z90.49 Acquired absence of other specified parts of digestive tract; Z87.891 Personal history of nicotine dependence; Z68.35 Body mass index [BMI] 35.0-35.9, adult; W22.8XXA Striking against or struck by other objects, initial encounter; Y93.89 Activity, other specified; Y92.89 Other specified places as the place of occurrence of the external cause; Y99.8 Other external cause status
CPT/HCPCS: 72040; 72070; 72100; 96372; 99284; J1885

== ENCOUNTER 2021-01-18 10:26 | Inpatient (IN) | payer OTHER ==
[~2021-01-18] VITALS: Ht 154.9 cm; Wt 97.0 kg
[2021-01-18] MEDS ORDERED: PANTOPRAZOLE 40 MG/10 ML VIAL INJ IV STA (10:52)
[2021-01-18] MEDS ORDERED: ONDANSETRON HCL 4 MG/2 ML VIAL IV ONE ×2 (11:00→13:45)
[2021-01-18] MEDS ORDERED: SODIUM CHLORIDE 0.9% 500 ML IVB ONE (11:00)
[2021-01-18] MEDS ORDERED: HYDROmorphone HCL 2 MG/ML VL IV ONE ×2 (11:00→13:45)
[2021-01-18 11:19] LABS: Basophils # (auto) 0.1 10 ^3/uL (0-0.2); Lymphocytes # (auto) 0.6 10 ^3/uL (0.4-5.4); Mean Corpuscular Hgb Conc. 32.1 g/dL (32.0-36.0); Monocytes # (auto) 0.4 10 ^3/uL (0-1.3); Nucleated Red Blood Cells % 0.1 %; White Blood Cell 11.2 10^3/uL (4.4-10.8)
[2021-01-18 11:21] LABS: Basophils % (auto) 0.6 % (0.0-2.0); Eosinophils # (auto) 0.2 10 ^3/uL (0-0.8); Eosinophils % (auto) 1.4 % (0.0-7.0); Hematocrit 39.2 % (36.0-46.0); Hemoglobin 12.6 g/dL (12.2-16.2); Lymphocytes % (auto) 5.5 % (10.0-50.0); Mean Corpuscular Hemoglobin 23.4 pg (28.0-32.0); Mean Corpuscular Volume 72.9 fL (80.0-100.0); Monocytes % (auto) 3.8 % (0.0-12.0); Neutrophils % (auto) 88.7 % (37.0-80.0); Platelet Count (auto) 426 10^3/uL (140-450); Red Blood Cells 5.38 10^6/uL (4.0-5.20); Red Cell Distribution Width 17.8 % (11.8-14.3)
[2021-01-18 11:40] LABS: Albumin 3.8 g/dL (3.4-5.0); Calcium 8.6 mg/dL (8.5-10.1); Potassium 3.8 mmol/L (3.5-5.1)
[2021-01-18 11:44] LABS: BUN/Creatinine Ratio 8.7; Bilirubin, Total 0.7 mg/dL (0.2-1.0); Total Protein 8.4 g/dL (6.4-8.2)
[2021-01-18] MEDS ORDERED: NITROGLYCERIN 0.4 MG SL TAB SL PRN (13:45)
[2021-01-18] MEDS ORDERED: MORPHINE SULF INJ 2 MG/ML SYRINGE 1ML IV PRN (13:45)
[2021-01-18] MEDS ORDERED: PROCHLORPERAZINE EDISYLATE 5 MG/ML 2ML VIAL IV ONE (14:15)
[2021-01-18] MEDS ORDERED: PROMETHAZINE HCL 25 MG/ML 1ML IV PRN (14:45)
[2021-01-18] MEDS ORDERED: TEMAZEPAM 15 MG CAP PO PRN (14:45)
[2021-01-18] MEDS ORDERED: DEXTROSE (50%) 50ML SYRG IV PRN (14:45)
[2021-01-18] MEDS: SODIUM CHLORIDE 0.9% 1,000 ML IV SCH ×2 (15:23→23:55)
[2021-01-18] MEDS: SUCRALFATE 1 GM/10 ML ORAL SUSP PO SCH ×2 (17:00→21:41)
[2021-01-18] MEDS: InsuLIN REG 1unit/0.01ml Soln (100units/ml) SC SCH ×2 (17:00→21:48)
[2021-01-18] MEDS: ACCU-CHEK COMFORT CURVE STRIP VI SCH ×2 (17:00→21:41)
[2021-01-18] MEDS: PROMETHAZINE HCL 25 MG/ML 1ML IV PRN ×2 (19:38→23:50)
[2021-01-18] MEDS: MORPHINE SULF INJ 2 MG/ML SYRINGE 1ML IV PRN ×2 (19:38→23:50)
[2021-01-18 19:47] LABS: Urine Bacteria NONE SEEN /hpf (None Seen); Urine Blood Negative /uL (Negative); Urine Mucus FEW (None Seen); Urine WBC 3 /hpf (0 - 5)
[2021-01-18 20:11] LABS: Amphetamine Screen, Urine NEGATIVE (NEGATIVE); Barbiturate Scree,Urine NEGATIVE (NEGATIVE); Benzodiazephine Screen, Urine NEGATIVE (NEGATIVE); Cannabinoid Screen, Urine NEGATIVE (NEGATIVE); Cocaine Screen, Urine NEGATIVE (NEGATIVE); Opiate Scree,Urine POSITIVE (NEGATIVE); Phencyclidine Screen, Urine NEGATIVE (NEGATIVE)
[2021-01-18 21:06] LABS: CRP High Sensitivity 1.15 mg/dL (< 0.3)
[2021-01-18] MEDS: PANTOPRAZOLE 40 MG/10 ML VIAL INJ IV SCH (21:41)
[2021-01-18 21:45] VITALS: BP 106/76
[2021-01-18] MEDS ORDERED: FAMOTIDINE 20 MG TAB PO SCH (22:00)
[2021-01-19] MEDS: traMADol HCL 50 MG TAB PO PRN ×3 (03:11→21:44)
[2021-01-19] MEDS ORDERED: OME20GT PO (03:12)
[2021-01-19] MEDS ORDERED: QUET25TA37 PO (03:12)
[2021-01-19] MEDS ORDERED: GABA300C10 PO (03:12)
[2021-01-19] MEDS ORDERED: METF-370 PO (03:12)
[2021-01-19] MEDS ORDERED: CLON0.5T PO (03:12)
[2021-01-19] MEDS ORDERED: CITA10TA8 PO (03:12)
[2021-01-19] MEDS ORDERED: INFLUENZA QUAD 2020-2021 0.5 ML SYRG IM ONE (03:15)
[2021-01-19 05:32] VITALS: BP 131/74
[2021-01-19 06:00] LABS: Basophils # (auto) 0.1 10 ^3/uL (0-0.2); Eosinophils # (auto) 0.2 10 ^3/uL (0-0.8); Lymphocytes # (auto) 0.8 10 ^3/uL (0.4-5.4); Monocytes # (auto) 0.5 10 ^3/uL (0-1.3); Neutrophils # (auto) 3.9 10 ^3/uL (1.6-8.6); Nucleated Red Blood Cells % 0.3 %; White Blood Cell 5.4 10^3/uL (4.4-10.8)
[2021-01-19 06:03] LABS: Basophils % (auto) 0.9 % (0.0-2.0); Eosinophils % (auto) 3.1 % (0.0-7.0); Hematocrit 33.4 % (36.0-46.0); Hemoglobin 10.7 g/dL (12.2-16.2); Lymphocytes % (auto) 14.8 % (10.0-50.0); Mean Corpuscular Hemoglobin 23.6 pg (28.0-32.0); Mean Corpuscular Hgb Conc. 32.1 g/dL (32.0-36.0); Mean Corpuscular Volume 73.5 fL (80.0-100.0); Monocytes % (auto) 9.3 % (0.0-12.0); Neutrophils % (auto) 71.9 % (37.0-80.0); Platelet Count (auto) 329 10^3/uL (140-450); Red Blood Cells 4.54 10^6/uL (4.0-5.20); Red Cell Distribution Width 17.8 % (11.8-14.3)
[2021-01-19 06:07] LABS: Albumin 2.9 g/dL (3.4-5.0); Calcium 7.4 mg/dL (8.5-10.1); Potassium 3.5 mmol/L (3.5-5.1)
[2021-01-19 06:12] LABS: BUN/Creatinine Ratio 7.3; Bilirubin, Total 0.4 mg/dL (0.2-1.0); Total Protein 6.7 g/dL (6.4-8.2)
[2021-01-19] MEDS: ACCU-CHEK COMFORT CURVE STRIP VI SCH ×4 (06:24→21:43)
[2021-01-19] MEDS: SUCRALFATE 1 GM/10 ML ORAL SUSP PO SCH ×4 (06:34→21:43)
[2021-01-19] MEDS: InsuLIN REG 1unit/0.01ml Soln (100units/ml) SC SCH ×4 (06:35→22:28)
[2021-01-19 08:00] VITALS: BP 136/70
[2021-01-19] MEDS: PROMETHAZINE HCL 25 MG/ML 1ML IV PRN ×3 (08:36→21:44)
[2021-01-19] MEDS: PANTOPRAZOLE 40 MG/10 ML VIAL INJ IV SCH (08:36)
[2021-01-19] MEDS: MORPHINE SULF INJ 2 MG/ML SYRINGE 1ML IV PRN ×3 (08:36→23:51)
[2021-01-19 08:54] LABS: INR 1.02 (0.9-1.15)
[2021-01-19] MEDS ORDERED: LIDOCAINE VISCOUS 2% 15ML UD ONE (09:29)
[2021-01-19] MEDS ORDERED: MIDAZOLAM HCL 5 MG/ML-1ML VIAL ONE (09:29)
[2021-01-19] MEDS ORDERED: fentaNYL CITRATE 100 MCG/2 ML VL ONE (09:30)
[2021-01-19] MEDS ORDERED: diphenhdrAMINE HCL 50 MG/1 ML VL ONE (09:30)
[2021-01-19 12:00] VITALS: BP 120/78
[2021-01-19] MEDS: SODIUM CHLORIDE 0.9% 1,000 ML IV SCH ×2 (12:10→16:06)
[2021-01-19 17:10] VITALS: BP 138/71
[2021-01-19] MEDS: HYOSCYAMINE SULF 0.125 MG ODT TAB PO PRN ×2 (17:37→23:01)
[2021-01-19 21:00] VITALS: BP 139/79
[2021-01-19] MEDS: PANTOPRAZOLE 40 MG TAB PO SCH (21:43)
[2021-01-20] MEDS: SODIUM CHLORIDE 0.9% 1,000 ML IV SCH (02:16)
[2021-01-20] MEDS: MORPHINE SULF INJ 2 MG/ML SYRINGE 1ML IV PRN (03:59)
[2021-01-20 05:00] VITALS: BP 140/77
[2021-01-20] MEDS: ACCU-CHEK COMFORT CURVE STRIP VI SCH ×2 (06:13→11:32)
[2021-01-20] MEDS: SUCRALFATE 1 GM/10 ML ORAL SUSP PO SCH ×2 (06:36→11:30)
[2021-01-20] MEDS: InsuLIN REG 1unit/0.01ml Soln (100units/ml) SC SCH ×2 (06:37→11:33)
[2021-01-20] MEDS: PROMETHAZINE HCL 25 MG/ML 1ML IV PRN (06:40)
[2021-01-20 06:44] LABS: Basophils # (auto) 0.1 10 ^3/uL (0-0.2); Eosinophils # (auto) 0.3 10 ^3/uL (0-0.8); Hemoglobin 11.1 g/dL (12.2-16.2); Lymphocytes # (auto) 1.4 10 ^3/uL (0.4-5.4); Monocytes # (auto) 0.7 10 ^3/uL (0-1.3)
[2021-01-20 06:47] LABS: Eosinophils % (auto) 5.3 % (0.0-7.0); Hematocrit 34.7 % (36.0-46.0); Lymphocytes % (auto) 24.9 % (10.0-50.0); Mean Corpuscular Hemoglobin 23.7 pg (28.0-32.0); Mean Corpuscular Hgb Conc. 31.9 g/dL (32.0-36.0); Mean Corpuscular Volume 74.4 fL (80.0-100.0); Monocytes % (auto) 11.9 % (0.0-12.0); Neutrophils # (auto) 3.1 10 ^3/uL (1.6-8.6); Neutrophils % (auto) 56.9 % (37.0-80.0); Nucleated Red Blood Cells % 0.3 %; Platelet Count (auto) 348 10^3/uL (140-450); Red Blood Cells 4.67 10^6/uL (4.0-5.20); Red Cell Distribution Width 17.6 % (11.8-14.3); White Blood Cell 5.5 10^3/uL (4.4-10.8)
[2021-01-20 06:56] LABS: Potassium 3.4 mmol/L (3.5-5.1)
[2021-01-20 07:03] LABS: Albumin 3.1 g/dL (3.4-5.0); BUN/Creatinine Ratio 6.3; Magnesium 1.9 mg/dL (1.6-2.6)
[2021-01-20 07:05] LABS: Bilirubin, Total 0.4 mg/dL (0.2-1.0); Total Protein 6.8 g/dL (6.4-8.2)
[2021-01-20 08:41] VITALS: BP 151/88
[2021-01-20] MEDS ORDERED: HYOS0.1289 PO (09:51)
[2021-01-20] MEDS ORDERED: PANT40TA2 PO (09:51)
[2021-01-20] MEDS ORDERED: SUCR1TAB22 PO (09:51)
[2021-01-20] MEDS ORDERED: POTASSIUM CHL 20 Meq TABLET PO ONE (10:00)
[2021-01-20] MEDS: PANTOPRAZOLE 40 MG TAB PO SCH (10:06)
[2021-01-20] MEDS ORDERED: INFLUENZA QUAD 2020-2021 0.5 ML SYRG IM ONE (12:00)
[2021-01-22 09:38] LABS: Hepatitis B Surface Antibody Positive
[2021-01-22 10:05] LABS: Hepatitis A Total Antibody Positive
[2021-01-22 10:34] LABS: Hepatitis B Core Total AB Negative; Hepatitis B Surface Antigen Negative (Negative); Hepatitis C Antibody Negative (Negative)
== END 2021-01-20 12:48 | disposition home or self-care (01) | DRG 241 ==
LOC: ER 10:26 → TELE 10:27 → TELE-EAST 20:22
PROVIDERS: ADMIT Internal Medicine; ATTEND Internal Medicine
PROC: 0DB68ZX Excision of Stomach, Via Natural or Artificial Opening Endoscopic, Diagnostic (ICD-10-PCS; principal; 2021-01-19 12:29)
DX: K29.70 Gastritis, unspecified, without bleeding (principal); R65.10 Systemic inflammatory response syndrome (SIRS) of non-infectious origin without acute organ dysfunction; E87.1 Hypo-osmolality and hyponatremia; E11.65 Type 2 diabetes mellitus with hyperglycemia; E66.01 Morbid (severe) obesity due to excess calories; Z20.822 Contact with and (suspected) exposure to COVID-19; K40.90 Unilateral inguinal hernia, without obstruction or gangrene, not specified as recurrent; K21.9 Gastro-esophageal reflux disease without esophagitis; K43.9 Ventral hernia without obstruction or gangrene; K76.0 Fatty (change of) liver, not elsewhere classified; K57.90 Diverticulosis of intestine, part unspecified, without perforation or abscess without bleeding; Z86.16 Personal history of COVID-19; R79.89 Other specified abnormal findings of blood chemistry; E78.5 Hyperlipidemia, unspecified; E87.6 Hypokalemia; Z80.9 Family history of malignant neoplasm, unspecified; Z82.49 Family history of ischemic heart disease and other diseases of the circulatory system; Z83.3 Family history of diabetes mellitus; Z87.891 Personal history of nicotine dependence; Z90.49 Acquired absence of other specified parts of digestive tract; Z68.36 Body mass index [BMI] 36.0-36.9, adult
CPT/HCPCS: 36415; 43239; 71045; 74176; 76705; 80053; 80307; 81001; 82150; 82962; 83036; 83690; 83735; 85025; 85610; 85652; 85730; 86141; 86704; 86706; 86708; 86803; 87340; 87426; 96361; 96374; 96375; 96376; C9113; G0378; J1815; J2250; J2405

== ENCOUNTER 2021-03-01 23:28 | Emergency (ER) | payer OTHER ==
[~2021-03-01] VITALS: Ht 154.9 cm; Wt 88.9 kg
[~2021-03-01 23:28] MED LIST changes: -ALBUAER3 IN; -BISA1TAB6 PO; +CITA10TA8 PO; +CLON0.5T PO; -DEXT1SYP9 PO; -FURO20TA3 PO; +GABA300C10 PO; +HYOS0.1289 PO; -LEVO750T64 PO; +METF-370 PO; -METH4PAK PO; -PANT40T PO; +PANT40TA2 PO; -POTA1TAB61 PO; +QUET25TA37 PO; +SUCR1TAB22 PO
[2021-03-02 00:04] LABS: Basophils # (auto) 0.1 10 ^3/uL (0-0.2); Eosinophils # (auto) 0.3 10 ^3/uL (0-0.8); Neutrophils % (auto) 56.7 % (37.0-80.0); Nucleated Red Blood Cells % 0.3 %
[2021-03-02 00:07] LABS: Basophils % (auto) 1.8 % (0.0-2.0); Eosinophils % (auto) 3.2 % (0.0-7.0); Hematocrit 38.3 % (36.0-46.0); Hemoglobin 12.3 g/dL (12.2-16.2); Lymphocytes # (auto) 2.2 10 ^3/uL (0.4-5.4); Mean Corpuscular Hemoglobin 24.2 pg (28.0-32.0); Mean Corpuscular Hgb Conc. 32.2 g/dL (32.0-36.0); Monocytes # (auto) 0.8 10 ^3/uL (0-1.3); Monocytes % (auto) 10.3 % (0.0-12.0); Neutrophils # (auto) 4.5 10 ^3/uL (1.6-8.6); Platelet Count (auto) 367 10^3/uL (140-450); Red Cell Distribution Width 16.9 % (11.8-14.3)
[2021-03-02 00:21] LABS: INR 0.98 (0.9-1.15); Partial Thromboplastin Time 24.7 sec (23.0-31.2)
[2021-03-02 00:26] LABS: Albumin 3.7 g/dL (3.4-5.0); Anion Gap 10 (5-15); Blood Urea Nitrogen 7 mg/dL (7-18); Calcium 9.3 mg/dL (8.5-10.1); Carbon Dioxide 23 mmol/L (21-32); Chloride 102 mmol/L (98-107); Glucose 167 mg/dL (74-106); Potassium 4.6 mmol/L (3.5-5.1); Sodium 135 mmol/L (136-145)
[2021-03-02 00:29] LABS: Alanine Aminotransferase 34 U/L (13-56); Aspartate Aminotransferase 33 U/L (15-37); BUN/Creatinine Ratio 6.7; GFR African American 72 mL/min; GFR Non-African American 60 mL/min; Lipase 182 U/L (73-393)
[2021-03-02 00:35] LABS: Alkaline Phosphatase 80 U/L (45-117); Bilirubin, Total 0.5 mg/dL (0.2-1.0); Total Protein 7.9 g/dL (6.4-8.2)
[2021-03-02] MEDS ORDERED: METOCLOPRAMIDE HCL 5MG/ml INJ 2ml VIAL IV ONE (02:15)
[2021-03-02] MEDS ORDERED: SODIUM CHLORIDE 0.9% 1,000 ML IV ONE (02:15)
[2021-03-02 03:35] LABS: Urine Amorphous Crystal FEW /hpf (None Seen); Urine Bacteria FEW /hpf (None Seen); Urine Blood Negative /uL (Negative); Urine Mucus FEW (None Seen); Urine Specific Gravity 1.013 (1.001-1.035); Urine WBC 6 /hpf (0 - 5)
[2021-03-02] MEDS ORDERED: IOHEXOL 300 MG/ML 100ML BOTTLE IJ ONE (04:35)
[2021-03-02] MEDS ORDERED: ACETAMINOPHEN 325 MG TAB PO ONE (05:15)
[2021-03-02 07:58] LABS: Lactic Acid w/Reflex 2.3 mmol/L (0.4-2.0)
[2021-03-02 09:30] VITALS: BP 126/75
== END 2021-03-02 09:42 | disposition home or self-care (01) ==
LOC: ER 23:34
DX: K59.00 Constipation, unspecified (principal); K21.9 Gastro-esophageal reflux disease without esophagitis; E11.9 Type 2 diabetes mellitus without complications; E78.5 Hyperlipidemia, unspecified; Z98.51 Tubal ligation status; Z32.02 Encounter for pregnancy test, result negative; Z90.49 Acquired absence of other specified parts of digestive tract; Z87.891 Personal history of nicotine dependence
CPT/HCPCS: 36415; 74177; 80053; 81001; 81025; 83605; 83690; 83880; 84484; 85025; 85610; 85730; 93005; 96361; 96374; 99285; J2765; J7030; Q9967

== ENCOUNTER 2021-06-01 20:03 | Emergency (ER) | payer OTHER ==
[~2021-06-01] VITALS: Ht 154.9 cm; Wt 86.2 kg
[~2021-06-01 20:03] MED LIST changes: -CHOL1000 PO; +CHOL1TAB30 PO
[2021-06-02 05:34] VITALS: BP 156/80
== END 2021-06-02 06:54 | disposition home or self-care (01) ==
LOC: ER 20:03
DX: J06.9 Acute upper respiratory infection, unspecified (principal); E66.9 Obesity, unspecified; E11.9 Type 2 diabetes mellitus without complications; K21.9 Gastro-esophageal reflux disease without esophagitis; E78.5 Hyperlipidemia, unspecified; Z68.30 Body mass index [BMI] 30.0-30.9, adult; Z90.49 Acquired absence of other specified parts of digestive tract; Z87.891 Personal history of nicotine dependence; Z20.822 Contact with and (suspected) exposure to COVID-19
CPT/HCPCS: 36415; 71046; 87426; 87804

== ENCOUNTER 2021-07-21 17:18 | Emergency (ER) | payer OTHER ==
[~2021-07-21] VITALS: Ht 154.9 cm; Wt 88.0 kg
[2021-07-21 18:35] LABS: Hematocrit 37.5 % (36.0-46.0); Hemoglobin 12.7 g/dL (12.2-16.2); Mean Corpuscular Hemoglobin 25.7 pg (28.0-32.0); Mean Corpuscular Volume 75.5 fL (80.0-100.0); Red Blood Cells 4.96 10^6/uL (4.0-5.20); Red Cell Distribution Width 16.8 % (11.8-14.3)
[2021-07-21 18:38] LABS: Band Neutrophils % (manual) 0; Basophils % (manual) 0 (0.0-2.0); Blast Cells 0; Metamyelocytes % 0; Myelocytes % 0; Promyelocytes % 0; Reactive Lymphocytes 0
[2021-07-21 18:44] LABS: Albumin 3.4 g/dL (3.4-5.0); Anion Gap 9 (5-15); Calcium 8.4 mg/dL (8.5-10.1); Carbon Dioxide 24 mmol/L (21-32); Chloride 99 mmol/L (98-107); Glucose 243 mg/dL (74-106); Magnesium 2.2 mg/dL (1.6-2.6); Sodium 132 mmol/L (136-145)
[2021-07-21 18:51] LABS: Alkaline Phosphatase 78 U/L (45-117); Bilirubin, Total 0.6 mg/dL (0.2-1.0); GFR African American 94 mL/min; GFR Non-African American 77 mL/min
[2021-07-21] MEDS ORDERED: MORPHINE SULFATE 4 MG/ML SYR/VIAL IV ONE ×2 (19:15→23:15)
[2021-07-21] MEDS ORDERED: SODIUM CHLORIDE 0.9% 1,000 ML IV ONE (19:15)
[2021-07-21] MEDS ORDERED: ONDANSETRON HCL 4 MG/2 ML VIAL IV ONE (19:15)
[2021-07-21] MEDS ORDERED: IOHEXOL 300 MG/ML 100ML BOTTLE IJ ONE (19:18)
[2021-07-21 19:45] LABS: Alanine Aminotransferase 53 U/L (13-56); Aspartate Aminotransferase 50 U/L (15-37); BUN/Creatinine Ratio 10.8; Blood Urea Nitrogen 9 mg/dL (7-18)
[2021-07-21 19:46] LABS: Total Protein 7.9 g/dL (6.4-8.2)
[2021-07-21 19:48] LABS: Urine Bacteria NONE SEEN /hpf (None Seen); Urine Blood Negative /uL (Negative); Urine Mucus FEW (None Seen); Urine Specific Gravity 1.024 (1.001-1.035); Urine WBC 2 /hpf (0 - 5)
[2021-07-21 20:06] LABS: Eosinophils % (manual) 2 (0-7); Lymphocytes % (manual) 10 (10.0-50.0); Monocytes % (manual) 5 (0-12)
[2021-07-21] MEDS ORDERED: AMOXICILLIN/CLAVUL 875 MG TAB PO ONE (22:00)
[2021-07-21] MEDS ORDERED: HYDROmorphone HCL 2 MG/ML VL IV ONE (22:45)
[2021-07-21] MEDS ORDERED: cefTRIAXone 1GM/50ML D5W 50 ML IV ONE (22:45)
[2021-07-22 00:15] VITALS: BP 143/52
== END 2021-07-22 00:21 | disposition home or self-care (01) ==
LOC: ER 17:18
DX: K57.32 Diverticulitis of large intestine without perforation or abscess without bleeding (principal); N83.201 Unspecified ovarian cyst, right side; R16.0 Hepatomegaly, not elsewhere classified; K43.9 Ventral hernia without obstruction or gangrene; E11.9 Type 2 diabetes mellitus without complications; Z90.49 Acquired absence of other specified parts of digestive tract; Z98.51 Tubal ligation status; Z79.899 Other long term (current) drug therapy
CPT/HCPCS: 36415; 71045; 74176; 80053; 81001; 82962; 83690; 83735; 84484; 84702; 85007; 85027; 93005; 96365; 96375; 99285; J0696; J2270; J2405; J7030

== ENCOUNTER 2022-06-28 15:24 | Emergency (ER) | payer OTHER ==
[~2022-06-28] VITALS: Ht 154.9 cm; Wt 72.7 kg
[2022-06-28 18:44] VITALS: BP 128/95
[2022-06-28] MEDS ORDERED: DOCU100T15 PO (20:07)
[2022-06-28] MEDS ORDERED: AZIT250T9 PO (20:07)
[2022-06-28] MEDS ORDERED: PRED1PAK7 PO (20:07)
[2022-06-28] MEDS ORDERED: SENN1TAB14 PO (20:07)
== END 2022-06-28 21:25 | disposition home or self-care (01) ==
LOC: ER 15:24
DX: U07.1 COVID-19 (principal); E11.9 Type 2 diabetes mellitus without complications; K21.9 Gastro-esophageal reflux disease without esophagitis; E78.5 Hyperlipidemia, unspecified; Z90.49 Acquired absence of other specified parts of digestive tract; Z87.891 Personal history of nicotine dependence; Z79.82 Long term (current) use of aspirin; Z79.899 Other long term (current) drug therapy
CPT/HCPCS: 71046

== ENCOUNTER 2022-07-02 12:11 | Emergency (ER) | payer OTHER ==
[~2022-07-02] VITALS: Ht 154.9 cm; Wt 74.1 kg
[~2022-07-02 12:11] MED LIST changes: +AZIT250T9 PO; +DOCU100T15 PO; +PRED1PAK7 PO; +SENN1TAB14 PO
[2022-07-02 13:21] LABS: Basophils # (auto) 0.1 10 ^3/uL (0-0.2); Eosinophils # (auto) 0.2 10 ^3/uL (0-0.8); Hemoglobin 11.4 g/dL (12.2-16.2); Mean Corpuscular Hemoglobin 20.5 pg (28.0-32.0); Monocytes # (auto) 0.5 10 ^3/uL (0-1.3); Neutrophils # (auto) 3.4 10 ^3/uL (1.6-8.6)
[2022-07-02 13:23] LABS: Basophils % (auto) 1.2 % (0.0-2.0); Eosinophils % (auto) 2.2 % (0.0-7.0); Lymphocytes # (auto) 3.1 10 ^3/uL (0.4-5.4); Lymphocytes % (auto) 42.7 % (10.0-50.0); Mean Corpuscular Hgb Conc. 29.9 g/dL (32.0-36.0); Mean Corpuscular Volume 68.5 fL (80.0-100.0); Monocytes % (auto) 7.1 % (0.0-12.0); Neutrophils % (auto) 46.8 % (37.0-80.0); Nucleated Red Blood Cells % 0.1 %; Red Blood Cells 5.55 10^6/uL (4.0-5.20); Red Cell Distribution Width 17.2 % (11.8-14.3); White Blood Cell 7.3 10^3/uL (4.4-10.8)
[2022-07-02 13:43] LABS: Albumin 3.7 g/dL (3.4-5.0); BUN/Creatinine Ratio 16.2; Calcium 9.4 mg/dL (8.5-10.1); Potassium 3.7 mmol/L (3.5-5.1)
[2022-07-02 13:47] LABS: Bilirubin, Total 0.2 mg/dL (0.2-1.0); Total Protein 7.7 g/dL (6.4-8.2)
[2022-07-02] MEDS ORDERED: DOXY-286 PO (14:57)
[2022-07-02] MEDS ORDERED: ACET-1158 PO (14:57)
[2022-07-02] MEDS ORDERED: KETOROLAC TROMETH 60MG/2ML VIAL IM ONE (15:00)
[2022-07-02 15:13] VITALS: BP 118/79
== END 2022-07-02 17:05 | disposition home or self-care (01) ==
LOC: ER 12:11
DX: J06.9 Acute upper respiratory infection, unspecified (principal); R07.89 Other chest pain; Z20.822 Contact with and (suspected) exposure to COVID-19; Z98.51 Tubal ligation status; Z90.49 Acquired absence of other specified parts of digestive tract
CPT/HCPCS: 36415; 71045; 80053; 84484; 85025; 87426; 93005; 96372; 99285; J1885

== ENCOUNTER 2023-09-11 16:55 | Inpatient (IN) | payer OTHER ==
[~2023-09-11] VITALS: Ht 154.9 cm; Wt 72.0 kg
[~2023-09-11 16:55] MED LIST changes: +ACET500T58 PO; +AZIT-43 PO; -AZIT250T9 PO; +CLON-1003 PO; -CLON0.5T PO; +DOXY-286 PO; +GABA-1250 PO; -GABA300C10 PO
[2023-09-11 18:09] LABS: Urine Bacteria NONE SEEN /hpf (None Seen); Urine Blood Negative /uL (Negative); Urine Clarity Clear (Clear); Urine Color Yellow (Yellow); Urine Hyaline Cast FEW /lpf (0 - 2); Urine Mucus FEW (None Seen); Urine Protein, UAD 1+ (Negative); Urine Specific Gravity 1.026 (1.001-1.035); Urine Urobilinogen Normal (Negative); Urine WBC 3 /hpf (0 - 5)
[2023-09-11] MEDS ORDERED: ACCU-CHEK COMFORT CURVE STRIP VI ONE (18:15)
[2023-09-11 19:21] LABS: Monocytes # (auto) 0.4 10 ^3/uL (0-1.3); Monocytes % (auto) 2.4 % (0.0-12.0); Neutrophils % (auto) 92.1 % (37.0-80.0)
[2023-09-11 19:22] LABS: Alanine Aminotransferase 21 U/L (7-40); Alkaline Phosphatase 115 U/L (46-116); Anion Gap 9 (5-15); Aspartate Aminotransferase 12 U/L (13-40); BUN/Creatinine Ratio 14.7 (10.0-20.0); Blood Urea Nitrogen 15 mg/dL (9-23); Calcium 11.1 mg/dL (8.5-10.1); Carbon Dioxide 23 mmol/L (20-30); Chloride 109 mmol/L (98-107); Glucose 118 mg/dL (74-106); Potassium 4.4 mmol/L (3.5-5.1); Sodium 141 mmol/L (136-145)
[2023-09-11 19:23] LABS: Albumin 5.3 g/dL (3.2-4.8); Basophils # (auto) 0.1 10 ^3/uL (0-0.2); Basophils % (auto) 0.4 % (0.0-2.0); Bilirubin, Total 0.7 mg/dL (0.2-1.0); Eosinophils # (auto) 0.2 10 ^3/uL (0-0.8); Hematocrit 49.1 % (36.0-46.0); Hemoglobin 15.5 g/dL (12.2-16.2); Lymphocytes # (auto) 0.6 10 ^3/uL (0.4-5.4); Lymphocytes % (auto) 4.1 % (10.0-50.0); Mean Corpuscular Hemoglobin 24.3 pg (28.0-32.0); Mean Corpuscular Hgb Conc. 31.6 g/dL (32.0-36.0); Mean Corpuscular Volume 76.9 fL (80.0-100.0); Nucleated Red Blood Cells % 0.1 %; Red Blood Cells 6.39 10^6/uL (4.0-5.20); Red Cell Distribution Width 17.1 % (11.8-14.3); Total Protein 8.4 g/dL (5.7-8.2); White Blood Cell 15.2 10^3/uL (4.4-10.8)
[2023-09-11] MEDS ORDERED: DexAMETHasone SOD PHOS 10MG/1ML VIAL INJ IV ONE (21:30)
[2023-09-11] MEDS ORDERED: AZITHROMYCIN 500MG/ 250ML 250 ML IV ONE (21:30)
[2023-09-11] MEDS ORDERED: cefTRIAXone SOD 1,000 MG VL IM ONE (21:30)
[2023-09-11] MEDS ORDERED: LACTATED RINGER'S 1,000 ML IV ONE (21:30)
[2023-09-11] MEDS ORDERED: ALBUTEROL SULF 2.5 MG/0.5ML(0.5%) NEB SOLN NEB ONE (21:30)
[2023-09-11] MEDS ORDERED: ONDANSETRON HCL 4 MG/2 ML VIAL IV ONE (23:30)
[2023-09-11] MEDS ORDERED: MORPHINE SULFATE 4 MG/ML SYR/VIAL IV ONE (23:30)
[2023-09-12] VITALS (9 sets, daily range): BP systolic 104–106; BP diastolic 60–67; PULSE 73–87; RESP 17–20; TEMP 97.9–98.5; O2SAT 93–100
[2023-09-12 04:56] LABS: COVID19 ANTIGEN SOFIA FIA NEGATIVE (NEGATIVE); Rapid Influenza A Negative (Negative); Rapid Influenza B Negative (Negative)
[2023-09-12] MEDS ORDERED: DOCUSATE SOD 100 MG CAP PO PRN (05:30)
[2023-09-12] MEDS ORDERED: DEXTROSE (50%) 50ML SYRG IV PRN (05:30)
[2023-09-12] MEDS ORDERED: ACETAMINOPHEN 325 MG TAB PO PRN (05:30)
[2023-09-12] MEDS ORDERED: ALBUTEROL SULF 2.5 MG/0.5ML(0.5%) NEB SOLN NEB PRN (05:30)
[2023-09-12] MEDS ORDERED: MORPHINE SULFATE 4 MG/ML SYR/VIAL IV ONE (06:00)
[2023-09-12] MEDS ORDERED: ONDANSETRON HCL 4 MG/2 ML VIAL IV ONE (06:00)
[2023-09-12] MEDS: InsuLIN REG 1unit/0.01ml Soln (100units/ml) SC SCH ×4 (06:09→21:58)
[2023-09-12] MEDS: metroNIDAZOLE 500MG/100ML 100 ML IV SCH ×3 (06:10→21:57)
[2023-09-12] MEDS: SODIUM CHLOR 0.9% PF (SALINE LOCK) 10ML VIAL/SYR IV SCH ×3 (06:10→21:57)
[2023-09-12] MEDS: ACCU-CHEK COMFORT CURVE STRIP VI SCH ×4 (06:43→21:58)
[2023-09-12] MEDS ORDERED: NITROGLYCERIN 0.4 MG SL TAB SL PRN (06:45)
[2023-09-12] MEDS ORDERED: MORPHINE SULFATE INJ 2 MG/ml SYRG IV PRN (06:45)
[2023-09-12 07:55] LABS: Basophils # (auto) 0 10 ^3/uL (0-0.2); Eosinophils # (auto) 0 10 ^3/uL (0-0.8); Hemoglobin 13.4 g/dL (12.2-16.2); Lymphocytes # (auto) 0.5 10 ^3/uL (0.4-5.4); Monocytes # (auto) 0.1 10 ^3/uL (0-1.3)
[2023-09-12 07:58] LABS: Basophils % (auto) 0.2 % (0.0-2.0); Hematocrit 42.6 % (36.0-46.0); Lymphocytes % (auto) 5.6 % (10.0-50.0); Mean Corpuscular Hemoglobin 24.5 pg (28.0-32.0); Mean Corpuscular Hgb Conc. 31.5 g/dL (32.0-36.0); Mean Corpuscular Volume 77.9 fL (80.0-100.0); Monocytes % (auto) 0.9 % (0.0-12.0); Neutrophils # (auto) 8.4 10 ^3/uL (1.6-8.6); Neutrophils % (auto) 93.3 % (37.0-80.0); Red Blood Cells 5.47 10^6/uL (4.0-5.20); Red Cell Distribution Width 16.9 % (11.8-14.3)
[2023-09-12 08:29] LABS: Alanine Aminotransferase 18 U/L (7-40); Albumin 4.8 g/dL (3.2-4.8); Alkaline Phosphatase 93 U/L (46-116); Anion Gap 10 (5-15); Aspartate Aminotransferase 8 U/L (13-40); BUN/Creatinine Ratio 12.5 (10.0-20.0); Blood Urea Nitrogen 11 mg/dL (9-23); Calcium 10.3 mg/dL (8.5-10.1); Carbon Dioxide 22 mmol/L (20-30); Chloride 109 mmol/L (98-107); Glucose 150 mg/dL (74-106); Potassium 4.4 mmol/L (3.5-5.1); Sodium 141 mmol/L (136-145)
[2023-09-12 08:30] LABS: Bilirubin, Total 0.6 mg/dL (0.2-1.0); Total Protein 7.8 g/dL (5.7-8.2)
[2023-09-12] MEDS: ASPirin 81 mg TAB PO SCH (10:41)
[2023-09-12] MEDS: ONDANSETRON HCL 4 MG/2 ML VIAL IV PRN ×2 (10:42→17:49)
[2023-09-12] MEDS: MORPHINE SULFATE INJ 2 MG/ml SYRG IV PRN ×3 (10:42→22:23)
[2023-09-12] MEDS: SUCRALFATE 1 GM TAB PO SCH ×2 (18:07→21:57)
[2023-09-12] MEDS ORDERED: ZOFR4T PO (20:24)
[2023-09-12] MEDS ORDERED: QUET200T45 PO (20:24)
[2023-09-12] MEDS ORDERED: NALT50TA5 PO (20:24)
[2023-09-12] MEDS ORDERED: TOPI100T68 PO (20:24)
[2023-09-12] MEDS ORDERED: BUPR-346 PO (20:24)
[2023-09-12] MEDS ORDERED: TOPI50TA53 PO (20:24)
[2023-09-12] MEDS ORDERED: NALT50TA27 PO (20:24)
[2023-09-12] MEDS ORDERED: METF-370 PO (20:24)
[2023-09-12] MEDS ORDERED: OMEP20TA PO (20:24)
[2023-09-12] MEDS ORDERED: CLON-853 PO (20:24)
[2023-09-12] MEDS ORDERED: GABA-1250 PO (20:24)
[2023-09-12] MEDS ORDERED: ALBU2TAB11 IN (20:24)
[2023-09-12] MEDS ORDERED: LINA1CAP2 PO (20:24)
[2023-09-12] MEDS ORDERED: SEMA2.4I SC (20:24)
[2023-09-12] MEDS ORDERED: FLUC150T47 PO (20:24)
[2023-09-12] MEDS ORDERED: LISI-275 PO (20:24)
[2023-09-12] MEDS ORDERED: PHEN-1325 PO (20:24)
[2023-09-12] MEDS: cefTRIAXone 1GM/50ML D5W 50 ML IV SCH (20:30)
[2023-09-12] MEDS: PANTOPRAZOLE 40 MG TAB PO SCH (21:56)
[2023-09-12] MEDS: HYDROcodone-ACET 5/325MG TAB PO PRN (23:18)
[2023-09-13] VITALS (11 sets, daily range): BP systolic 91–128; BP diastolic 58–74; PULSE 60–69; RESP 18; TEMP 97.5–98.4; O2SAT 95–99
[2023-09-13] MEDS: MORPHINE SULFATE INJ 2 MG/ml SYRG IV PRN ×2 (02:56→09:16)
[2023-09-13] MEDS: InsuLIN REG 1unit/0.01ml Soln (100units/ml) SC SCH ×4 (06:20→21:33)
[2023-09-13] MEDS: metroNIDAZOLE 500MG/100ML 100 ML IV SCH ×3 (06:20→21:58)
[2023-09-13] MEDS: ACCU-CHEK COMFORT CURVE STRIP VI SCH ×4 (06:20→20:49)
[2023-09-13] MEDS: SODIUM CHLOR 0.9% PF (SALINE LOCK) 10ML VIAL/SYR IV SCH ×3 (06:20→20:50)
[2023-09-13] MEDS: SUCRALFATE 1 GM TAB PO SCH ×4 (06:20→21:58)
[2023-09-13 07:08] LABS: Basophils # (auto) 0 10 ^3/uL (0-0.2); Basophils % (auto) 0.3 % (0.0-2.0); Eosinophils # (auto) 0.1 10 ^3/uL (0-0.8); Lymphocytes # (auto) 1.7 10 ^3/uL (0.4-5.4); Monocytes # (auto) 0.9 10 ^3/uL (0-1.3); Monocytes % (auto) 11.1 % (0.0-12.0)
[2023-09-13 07:09] LABS: Alanine Aminotransferase 14 U/L (7-40); Albumin 4.1 g/dL (3.2-4.8); Alkaline Phosphatase 79 U/L (46-116); Anion Gap 7 (5-15); Aspartate Aminotransferase 18 U/L (13-40); BUN/Creatinine Ratio 13.5 (10.0-20.0); Blood Urea Nitrogen 12 mg/dL (9-23); Calcium 9.5 mg/dL (8.7-10.4); Carbon Dioxide 25 mmol/L (20-30); Chloride 109 mmol/L (98-107); Glucose 95 mg/dL (74-106); Potassium 3.7 mmol/L (3.5-5.1); Sodium 141 mmol/L (136-145)
[2023-09-13 07:10] LABS: Bilirubin, Total 0.3 mg/dL (0.2-1.0); Total Protein 6.5 g/dL (5.7-8.2)
[2023-09-13 07:12] LABS: Eosinophils % (auto) 1.7 % (0.0-7.0); Lymphocytes % (auto) 21.3 % (10.0-50.0); Mean Corpuscular Hemoglobin 24.7 pg (28.0-32.0); Mean Corpuscular Hgb Conc. 32.3 g/dL (32.0-36.0); Mean Corpuscular Volume 76.4 fL (80.0-100.0); Neutrophils # (auto) 5.2 10 ^3/uL (1.6-8.6); Neutrophils % (auto) 65.6 % (37.0-80.0); Red Blood Cells 4.85 10^6/uL (4.0-5.20); Red Cell Distribution Width 17.2 % (11.8-14.3); White Blood Cell 7.9 10^3/uL (4.4-10.8)
[2023-09-13] MEDS: ONDANSETRON HCL 4 MG/2 ML VIAL IV PRN (10:22)
[2023-09-13] MEDS: PANTOPRAZOLE 40 MG TAB PO SCH ×2 (10:48→21:58)
[2023-09-13] MEDS: ASPirin 81 mg TAB PO SCH (12:19)
[2023-09-13] MEDS ORDERED: FLEET ENEMA(ADULT) 135 ML PR ONE (15:30)
[2023-09-13] MEDS: HYDROcodone-ACET 5/325MG TAB PO PRN ×2 (16:43→23:32)
[2023-09-13] MEDS ORDERED: POLYETHYLENE GLYCOL 17 GM PWDR PO ONE (17:00)
[2023-09-13] MEDS: POLYETHYLENE GLYCOL 17 GM PWDR PO ONE ×2 (20:00→20:49)
[2023-09-13] MEDS: cefTRIAXone 1GM/50ML D5W 50 ML IV SCH (20:49)
[2023-09-13] MEDS ORDERED: QUEtiapine FUMARATE 100 MG TAB PO SCH (22:00)
[2023-09-14] VITALS (7 sets, daily range): BP systolic 94–110; BP diastolic 51–67; PULSE 69–74; RESP 17–18; TEMP 97.6–98.2; O2SAT 96–97
[2023-09-14] MEDS: ACCU-CHEK COMFORT CURVE STRIP VI SCH ×3 (05:57→17:09)
[2023-09-14] MEDS: SODIUM CHLOR 0.9% PF (SALINE LOCK) 10ML VIAL/SYR IV SCH ×2 (05:57→14:23)
[2023-09-14] MEDS: metroNIDAZOLE 500MG/100ML 100 ML IV SCH ×2 (05:57→14:22)
[2023-09-14] MEDS: SUCRALFATE 1 GM TAB PO SCH ×3 (05:57→17:10)
[2023-09-14] MEDS: InsuLIN REG 1unit/0.01ml Soln (100units/ml) SC SCH ×3 (06:05→17:00)
[2023-09-14] MEDS: ASPirin 81 mg TAB PO SCH (10:02)
[2023-09-14] MEDS: HYDROcodone-ACET 5/325MG TAB PO PRN ×2 (10:03→15:47)
[2023-09-14] MEDS: PANTOPRAZOLE 40 MG TAB PO SCH (10:03)
[2023-09-14] MEDS ORDERED: METR-344 PO (10:50)
[2023-09-14] MEDS ORDERED: ZOFR4T PO (10:50)
[2023-09-14] MEDS ORDERED: FLEET MINERAL OIL ENEMA 133 ML PR ONE (11:45)
== END 2023-09-14 18:00 | disposition home or self-care (01) | DRG 249 ==
LOC: ER 16:55 → OVERFLOW 09-12 06:35 → EAST 09-12 19:03
PROVIDERS: ADMIT Nurse Practitioner Family; ATTEND Nurse Practitioner
DX: K52.9 Noninfective gastroenteritis and colitis, unspecified (principal); E11.65 Type 2 diabetes mellitus with hyperglycemia; K21.9 Gastro-esophageal reflux disease without esophagitis; E78.5 Hyperlipidemia, unspecified; J45.909 Unspecified asthma, uncomplicated; Z20.822 Contact with and (suspected) exposure to COVID-19; K59.09 Other constipation; Z83.3 Family history of diabetes mellitus; Z87.891 Personal history of nicotine dependence; Z80.9 Family history of malignant neoplasm, unspecified; Z79.01 Long term (current) use of anticoagulants; Z82.49 Family history of ischemic heart disease and other diseases of the circulatory system; Z79.4 Long term (current) use of insulin
CPT/HCPCS: 36415; 71045; 74176; 80053; 81001; 82962; 83605; 84484; 85025; 87040; 87045; 87426; 87427; 87804; 94640; 96372; G0378; J0696; J1100; J1815; J2405; J3490

== ENCOUNTER 2024-05-17 22:33 | Emergency (ER) | payer OTHER ==
[~2024-05-17] VITALS: Ht 154.9 cm; Wt 70.0 kg
[~2024-05-17 22:33] MED LIST changes: -ACET500T58 PO; +ALBU2TAB11 IN; -AZIT-43 PO; +BUPR-346 PO; -CEPH500C; -CLON-1003 PO; -DOCU100T15 PO; -DOXY-286 PO; -HYOS0.1289 PO; +LISI-275 PO; +METR-344 PO; -PANT40TA2 PO; -PRED1PAK7 PO; -QUET25TA37 PO; -SENN1TAB14 PO; -SUCR1TAB22 PO; +TOPI100T68 PO; -ZINC100T5 PO; +ZOFR4T PO
[2024-05-17 22:50] VITALS: BP 127/77; PULSE 76; RESP 16; O2SAT 99
[2024-05-18] MEDS ORDERED: BACIOIN15 TOP (02:32)
[2024-05-18] MEDS ORDERED: CEPH500C PO (02:32)
[2024-05-18] MEDS ORDERED: ACET500T58 PO (02:32)
== END 2024-05-18 02:39 | disposition home or self-care (01) ==
LOC: ER 22:33
DX: T22.211D Burn of second degree of right forearm, subsequent encounter (principal); J45.909 Unspecified asthma, uncomplicated; E11.9 Type 2 diabetes mellitus without complications; K21.9 Gastro-esophageal reflux disease without esophagitis; E78.5 Hyperlipidemia, unspecified; Z87.891 Personal history of nicotine dependence; Z90.49 Acquired absence of other specified parts of digestive tract; Z98.51 Tubal ligation status; Z88.6 Allergy status to analgesic agent; X15.8XXD Contact with other hot household appliances, subsequent encounter
CPT/HCPCS: 16020